=== PATIENT | female | born 1995 | race African-American/Black ===

== ENCOUNTER 2021-01-08 16:15 | Emergency (ER) | payer OTHER ==
[2021-01-08 16:43] VITALS: BP 117/73; PULSE 72; TEMP 98.1; BMI 26.2
[2021-01-08 18:13] LABS: HCG,QUALITATIVE URINE Negative
[2021-01-08 18:16] LABS: URINE APPEARANCE CLEAR; URINE BILIRUBIN NEGATIVE (NEGATIVE); URINE COLOR YELLOW; URINE GLUCOSE (UA) NEGATIVE (NEGATIVE); URINE KETONE 1+ (NEGATIVE); URINE LEUK ESTERASE NEGATIVE (NEGATIVE); URINE NITRITE NEGATIVE (NEGATIVE); URINE PROTEIN NEGATIVE (NEGATIVE)
== END 2021-01-08 20:56 | disposition home or self-care (01) ==
LOC: JER 16:15
DX: R10.2 Pelvic and perineal pain (principal)
CPT/HCPCS: 76856-TC; 81003; 84703; 87070; 87086; 87205; 99284-25

== ENCOUNTER 2021-02-02 10:58 | Emergency (ER) | payer OTHER ==
[2021-02-02 11:06] VITALS: BP 108/77; PULSE 66; TEMP 97.9; BMI 26.9
[2021-02-02 12:45] LABS: URINE APPEARANCE CLEAR; URINE BILIRUBIN NEGATIVE (NEGATIVE); URINE COLOR YELLOW; URINE GLUCOSE (UA) NEGATIVE (NEGATIVE); URINE KETONE NEGATIVE (NEGATIVE); URINE LEUK ESTERASE NEGATIVE (NEGATIVE); URINE NITRITE NEGATIVE (NEGATIVE); URINE PROTEIN NEGATIVE (NEGATIVE)
[2021-02-02 12:47] LABS: HCG,QUALITATIVE URINE Negative
== END 2021-02-02 13:06 | disposition home or self-care (01) ==
LOC: JER 10:58
DX: B37.3 Candidiasis of vulva and vagina (principal); N76.0 Acute vaginitis
CPT/HCPCS: 36415; 81003; 84703; 87070; 87077; 87086; 87205; 87491; 87591; 87661; 99283-25

== ENCOUNTER 2022-01-07 13:03 | Emergency (ER) | payer OTHER ==
[2022-01-07 13:08] VITALS: BP 121/62; PULSE 72; RESP 18; TEMP 98.4; BMI 27.8
[2022-01-07 15:52] LABS: URINE APPEARANCE CLEAR; URINE BILIRUBIN NEGATIVE (NEGATIVE); URINE COLOR YELLOW; URINE GLUCOSE (UA) NEGATIVE (NEGATIVE); URINE KETONE NEGATIVE (NEGATIVE); URINE LEUK ESTERASE NEGATIVE (NEGATIVE); URINE NITRITE NEGATIVE (NEGATIVE); URINE PROTEIN NEGATIVE (NEGATIVE); URINE UROBILINOGEN 0.2 mg/dL (0.2-1.0)
[2022-01-07 16:32] LABS: HCG,QUALITATIVE URINE Negative
== END 2022-01-07 17:00 | disposition home or self-care (01) ==
LOC: JERFT 13:03
DX: B37.3 Candidiasis of vulva and vagina (principal)
CPT/HCPCS: 81003; 84703; 87070; 87077; 87086; 87205; 99283-25